=== PATIENT | male | born 1960 | race Caucasian/White ===

== ENCOUNTER → 2016-10-21 | Outpatient (CLI) | payer OTHER ==
--- NOTE | 2016-10-21 14:09 | RAD ---
EXAM DESCRIPTION: Right knee series. CLINICAL HISTORY: Right knee pain. COMPARISON: None. TECHNIQUE: Three views of the right knee are submitted for interpretation. FINDINGS: Joint space appears preserved. There is no fracture, dislocation, obvious joint effusion or suspicious radiopaque foreign body. Soft tissues are unremarkable. IMPRESSION: No significant abnormality. Electronically signed by: Judson Carlson MD 10/21/2016 14:07
--- NOTE | 2016-10-21 14:10 | RAD ---
EXAM DESCRIPTION: Pelvis series. CLINICAL HISTORY: Several months of pain COMPARISON: None. TECHNIQUE: One view was submitted for evaluation. FINDINGS: Symmetrical mild joint space loss noted within both hips. No fracture, dislocation, or radiopaque foreign body is seen. Pelvic ring appears intact. Soft tissues are unremarkable. IMPRESSION: Symmetrical joint space loss within bilateral hips compatible with mild degenerative change. Electronically signed by: Judson Carlson MD 10/21/2016 14:08
--- NOTE | 2016-10-22 19:09 | MRI ---
Study: MRI of the Right Knee. Indication: MEDIAL MENISCUS TEAR Technique: Multiplanar, multi sequence MRI of the right knee was obtained without intravenous contrast. Comparison: None. Findings: ACL, PCL, MCL, and lateral collateral ligament complex intact. Mild degenerative signal posterior horn medial meniscus without tear. In addition there is degenerative signal at the anterior root insertion of the medial meniscus with ill-defined tiny complex ganglion measuring up to 9 mm. Very subtle free edge fraying body lateral meniscus. Grade 1/2 chondral thinning central weight-bearing portions medial and lateral knee compartments without tear defect. Low-grade insertional quadriceps tendinosis with mild enthesophyte formation. More subtle tendinosis patellar tendon origin without tear. Patella intact. Areas of grade 1 and 2 chondral surface irregularity of the medial patellar facet noted with more pronounced grade 2/3 chondral loss of the midline femoral trochlea. Moderate size knee effusion. No acute fracture or osseous contusion. Impression: Degenerative signal change medial meniscus without tear. Subtle free edge fraying body lateral meniscus. 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 No full-thickness chondral defect. Moderate size knee effusion. Low-grade insertional quadriceps tendinosis with more subtle tendinosis patellar tendon origin. Electronically signed by: Lam Tirado MD 10/22/2016 19:07
== END ==
LOC: MRI 07:43
PROVIDERS: ATTEND Family Medicine
DX: M25.561 Pain in right knee (principal); M94.261 Chondromalacia, right knee; M25.461 Effusion, right knee; M76.891 Other specified enthesopathies of right lower limb, excluding foot; M25.551 Pain in right hip; M12.851 Other specific arthropathies, not elsewhere classified, right hip; M12.852 Other specific arthropathies, not elsewhere classified, left hip

== ENCOUNTER → 2016-11-15 | Outpatient (CLI) | payer OTHER | END | disposition home or self-care (01) | LOC: RESP 09:48 | PROVIDERS: ATTEND Orthopaedic Surgery | DX: Z01.818 Encounter for other preprocedural examination (principal) ==

== ENCOUNTER 2016-11-30 05:59 | Day surgery (SDC) | payer OTHER ==
--- NOTE | 2016-11-28 08:41 | HP ---
CHIEF COMPLAINT: Right knee pain. HISTORY OF PRESENT ILLNESS: Eric is a 55-year-old male with a history of pain in the right knee that has been going on for about four months. He can pinpoint the day that it happened. He says he was doing a [employer] race on that particular day. He had no direct trauma to the knee. He has popping in the knee and describes severe pain with certain activities inclusive of stairs. He has had no significant response to anti-inflammatories. It affects his gait and is also causing pain in the hips ipsilateral joints. 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 Given his mechanical symptoms and the interference with daily activity, he has requested operative intervention. After discussing the risks, benefits and alternatives to operative therapy, the patient has given informed consent. PAST SURGICAL HISTORY: 1. Herniorrhaphy. 2. Appendectomy. 3. Left wrist surgery. MEDICATIONS: 1. Dexilant. 2. Advil. ALLERGIES: PENICILLIN. CODE STATUS: Full code. IMMUNIZATIONS: Up to date. SOCIAL HISTORY: The patient does not smoke or use any illicit drugs. He does drink on occasion. FAMILY HISTORY: None pertinent to today's complaint. REVIEW OF SYSTEMS: Negative except as indicated in the History of Present Illness. PHYSICAL EXAMINATION: VITAL SIGNS: Blood pressure 140/110. Pulse 67. Height 6'4". Weight 224. MENTAL STATUS: The patient is awake, alert, and is able to give a good history and participate in the physical. The patient is oriented to person, place and time. SKIN: Normal tone and turgor. HEENT: Normocephalic, atraumatic. Pupils equal, round and reactive. Mucosal membranes are moist. NECK: Normal range of motion. No thyromegaly, no lymphadenopathy. CHEST: Normal respiratory excursion. CARDIAC: Regular rate and rhythm. No murmurs, rubs or gallops. MUSCULOSKELETAL: He has extreme tenderness along the medial aspect of the knee. He has intact sensation. There does not appear to be any effusion. He is mildly tender laterally. He has full extension with flexion to about 130 degrees. He has a positive Mane's, but negative Chucky's, negative posterior drawer, and no varus/valgus instability. IMAGING: X-rays show no acute bony abnormality. MRI was done and does show some patellofemoral arthritis with degenerative fraying of the medial meniscus. No other abnormality noted. There was a moderate effusion at the time of that MRI. ASSESSMENT: 1. Knee pain with mechanical symptoms. PLAN: The plan at this point is for knee arthroscopy. Eric and I talked about the fact that given his age and symptoms, that this will be both a diagnostic and hopefully therapeutic intervention for him, but we are also unsure of the exact etiology of the pain and, therefore, we are going to make some determinations while in the Operating Room. After discussing the risks, benefits and alter to operative therapy, he has given informed consent. [facility][id number] [facility]
[~2016-11-30 05:59] MED LIST: LACTATED RINGERS 1,000 ML ONE; SODIUM CHL 0.9% 100ML MINI-BAG 100 ML IVPB ONE; ceFAZolin SODIUM 1 GM VIAL ONE
[2016-11-30] MEDS ORDERED: BUPIVACAINE 0.25% W/EPI 50 ML VIAL INJ ONE (06:15)
[2016-11-30] MEDS ORDERED: ceFAZolin SODIUM 1 GM VIAL ONE (06:15)
[2016-11-30] MEDS ORDERED: VANCOMYCIN HCL INJ 1,000 MG VIAL IVPB ONE (06:15)
[2016-11-30] MEDS ORDERED: MIDAZOLAM INJ 5 MG/5 ML VIAL ONE (06:43)
[2016-11-30] MEDS ORDERED: HYDROmorphone HCL INJ 2 MG/ML VIAL ONE (06:43)
[2016-11-30 08:54] VITALS: O2SAT 99
[2016-11-30] MEDS ORDERED: HYDROcodone 5MG/APAP 325MG 1 EA TAB ONE (09:04)
[2016-11-30 09:40] VITALS: BP 147/93; TEMP 97.1
--- NOTE | 2016-11-30 11:25 | OP ---
DATE OF PROCEDURE: 11/30/16 PREOPERATIVE DIAGNOSIS: 1. Knee pain. POSTOPERATIVE DIAGNOSIS: 1. Chondromalacia of the medial compartment. 2. Chondromalacia with full thickness defect of the patellofemoral compartment. PROCEDURE: 1. Debridement or cartilage. SURGEON: Cory Rock MD. CONVENTIONAL MACHINIST: Samuel Rivera CST, -Nicole. ANESTHESIA: General. COMPLICATIONS: None. FINDINGS: 1. Normal medial meniscus. 2. Grade 3 to grade 4 chondromalacia of the medial femoral condyle with softening of the medial tibial plateau. 3. Normal anterior cruciate ligament. 4. Normal posterior cruciate ligament. 5. Softening of the lateral compartment cartilage. 6. Normal lateral gutter. 7. Normal suprapatellar pouch. 8. Full thickness defect measuring approximately 2 cm by 5 mm in the trochlear groove. 9. Normal posterior recess. INDICATION: Sergeant Singh has a history of knee pain and he can pinpoint pretty much the date that it began. He was having some pain after he was participating in a [employer] race. Subsequent to that, he continued to have pain and some mechanical symptoms. Given that, he requested operative intervention. After discussing the risks, benefits and alternatives to that, the patient has given informed consent. PROCEDURE: The patient was brought to the Operating Room and placed in supine position. General anesthesia was induced and the patient's leg was sterilely prepped and draped. Following prepping and draping, standard anteromedial and anterolateral portals were established. Diagnostic arthroscopy was carried out with the above findings. Following diagnostic arthroscopy, debridement of the medial femoral condyle was performed. Care was taken to ensure removal of all debris secondary to the chondroplasty. The knee was very thoroughly irrigated and once irrigation was complete, the knee was fully drained. The wounds were closed with Nylon suture. Sterile dressings were placed. The patient was awoken from anesthesia and taken to Recovery. POSTOPERATIVE INSTRUCTIONS: The patient will be partial weightbearing until followup with us. He has been given instructions on appropriate removal of dressing and wound care until followup. We will base any type of treatment in the future on his response. #[id number] [facility]
[2016-11-30] MEDS ORDERED: DEXAMETHASONE INJ 10 MG/ML VIAL IV ONE (12:00)
[2016-11-30] MEDS ORDERED: SODIUM CHLORIDE 0.9% 50 ML VIAL INJ ONE (12:00)
[2016-11-30] MEDS ORDERED: PROPOFOL 200 MG/20 ML VIAL IV ONE (12:00)
[2016-11-30] MEDS ORDERED: LIDOCAINE 1% 10 ML VIAL INJ ONE (12:00)
[2016-11-30] MEDS ORDERED: raNITIdine HCL INJ 25 MG/ML VIAL IV ONE (12:00)
[2016-11-30] MEDS ORDERED: ePHEDrine SULF 50 MG/ML IV ONE (12:00)
== END 2016-11-30 09:35 | disposition home or self-care (01) ==
LOC: AMB 05:59
PROVIDERS: ATTEND Orthopaedic Surgery
DX: M22.41 Chondromalacia patellae, right knee (principal); Z88.0 Allergy status to penicillin; Z79.899 Other long term (current) drug therapy
CPT/HCPCS: 01400; 29877; 36415; 85025; A4216; J0690; J1100; J1170; J2250; J2780; J3490; J7050; J7120

== ENCOUNTER → 2017-02-08 | Outpatient (CLI) | payer OTHER ==
--- NOTE | 2017-02-09 03:09 | RAD ---
Procedure: XR KNEE 4 OR MORE VIEWS Exam Date: 02/08/2017 Ordering Provider: GABRIEL POST Clinical Indication: PAIN Comparison: None FINDINGS: There is no fracture or dislocation. The articular surfaces of the left knee are intact. There is no significant joint space narrowing. Superior patellar enthesophyte. No lytic or sclerotic lesions. No joint effusion. No subcutaneous gas. IMPRESSION: 1. No acute fracture or dislocation of the left knee. Electronically signed by: Juan C Branch MD 02/09/2017 3:09 AM CDT
== END | disposition home or self-care (01) ==
LOC: RAD 11:06
PROVIDERS: ATTEND Orthopaedic Surgery
DX: M25.562 Pain in left knee (principal)

== ENCOUNTER → 2017-03-14 | Outpatient (CLI) | payer OTHER | END | disposition home or self-care (01) | LOC: GMAJ 10:44 | DX: E29.1 Testicular hypofunction (principal) ==

== ENCOUNTER → 2017-03-17 | Outpatient (CLI) | payer OTHER ==
--- NOTE | 2017-03-19 13:40 | US ---
EXAM DESCRIPTION: Abdomen,Complete CLINICAL HISTORY: ELEVATED LIVER FUNCTION TESTS. COMPARISON: None Available. TECHNIQUE: Complete abdominal ultrasound FINDINGS: The liver is enlarged up to 17.8 cm. It demonstrates diffusely increased echogenicity. There is no focal hepatic mass. The gallbladder contains no sludge, calculus, or polyps. The gallbladder wall measures 2 mm. The common bile duct measures 5 mm. The pancreas is not well seen due to bowel gas. Visualized portions are unremarkable. The spleen is normal in size, shape, and echotexture. The kidneys are normal in size, shape, and echotexture. The IVC and the proximal aorta are unremarkable. IMPRESSION: 1. Hepatomegaly with increased liver echogenicity, most consistent with steatosis. Electronically signed by: Sandro Encinas MD 03/19/2017 1:39 PM CDT Workstation: [id number]
== END | disposition home or self-care (01) ==
LOC: US 08:24
PROVIDERS: ATTEND Family Medicine
DX: R74.8 Abnormal levels of other serum enzymes (principal)

== ENCOUNTER 2017-04-07 08:00 | Day surgery (SDC) | payer OTHER ==
[~2017-04-07 08:00] MED LIST changes: -SODIUM CHL 0.9% 100ML MINI-BAG 100 ML IVPB ONE; -ceFAZolin SODIUM 1 GM VIAL ONE
[2017-04-07 08:43] VITALS: O2SAT 99
[2017-04-07 09:36] VITALS: BP 126/85; TEMP 97.4
--- NOTE | 2017-04-07 09:53 | OP ---
DATE OF PROCEDURE: 04/07/17 PREOPERATIVE DIAGNOSIS: 1. Colon cancer screen. POSTOPERATIVE DIAGNOSIS: 1. Polyp in the cecum. PROCEDURE: 1. Colonoscopy with biopsy of cecal polyp. SURGEON: Billy Lopes MD. ANESTHESIA: MAC by Williams Kolb CRNA. ESTIMATED BLOOD LOSS: Less than 2 mL. COMPLICATIONS: None apparent. TECHNIQUE: After informed consent was obtained from the patient, the patient was taken to the Endoscopy Suite and put in the left lateral decubitus position. After adequate IV sedation was obtained, a digital rectal exam was performed which revealed normal sphincter tone, no intraluminal masses, and a smooth, 1+, anodular prostate. The colonoscope was then passed with good visualization all the way through the colon. The bowel prep was good. In the cecum immediately adjacent to the what appeared to be the appendiceal scar, the patient had a large, wide-based polyp. This looks to be an adenomatous polyp, but was too large to do a polypectomy on, especially all the way up in the cecum and with such a wide stalk. The lesion was biopsied and good tissue was obtained and sent to Pathology. There was good hemostasis from the biopsy site. The lesion was carefully inspected and it was decided it was too risky to attempt a polypectomy here in [place] without the presence of our general surgeon. The scope was then withdrawn slowly over the next 10 to 12 minutes and a good look at the remainder of the colon was obtained. There were no other abnormalities found. The scope was removed. The patient tolerated the procedure well. The patient was transported to the outpatient area in good condition. He will followup with me in one week for path report. He will need to have this polyp removed. Hopefully, it will be benign and we can send him to [place] for endoscopic removal at [facility]. #[id number] [facility]
[2017-04-07] MEDS ORDERED: PROPOFOL 200 MG/20 ML VIAL IV ONE (12:00)
== END 2017-04-07 09:20 | disposition home or self-care (01) ==
LOC: AMB 08:00
PROVIDERS: ATTEND Family Medicine
DX: Z12.11 Encounter for screening for malignant neoplasm of colon (principal); D12.0 Benign neoplasm of cecum; I10 Essential (primary) hypertension; F51.04 Psychophysiologic insomnia; E78.5 Hyperlipidemia, unspecified; M17.10 Unilateral primary osteoarthritis, unspecified knee; M54.5 Low back pain; R07.9 Chest pain, unspecified; K21.9 Gastro-esophageal reflux disease without esophagitis; I25.10 Atherosclerotic heart disease of native coronary artery without angina pectoris; Z86.010 Personal history of colon polyps; Z88.8 Allergy status to other drugs, medicaments and biological substances; Z88.0 Allergy status to penicillin; Z79.899 Other long term (current) drug therapy
CPT/HCPCS: 00810; 45380; J3490; J7120

== ENCOUNTER → 2018-02-12 | Outpatient (CLI) | payer OTHER ==
--- NOTE | 2018-02-12 12:01 | US ---
EXAM DESCRIPTION: Renal Arteries CLINICAL HISTORY: 57 years Male, MALIG HYPERTENSION COMPARISON: None. TECHNIQUE: 2-D grayscale and color arterial duplex Doppler evaluation of the abdominal aorta and renal arterial vasculature is performed. FINDINGS: No obvious hydronephrosis. Peak systolic velocity of the abdominal aorta is 90 cm/s. Systolic velocity of the right main renal artery is 132 cm/s. The left is 98.5 cm/s. The renal artery to aortic ratio is 1.5 on the right and 1.1 on the left. IMPRESSION: No ultrasound evidence of renal artery stenosis. Electronically signed by: Fredrick Garner MD 02/12/2018 12:00 PM CDT
== END ==
LOC: US 08:33
PROVIDERS: ATTEND Family Medicine
DX: I10 Essential (primary) hypertension (principal)

== ENCOUNTER 2018-02-14 05:37 | Day surgery (SDC) | payer OTHER ==
[2018-02-14] MEDS ORDERED: LACTATED RINGERS 1,000 ML ONE (06:11)
[2018-02-14] MEDS ORDERED: PROPOFOL 200 MG/20 ML VIAL IV ONE (10:00)
--- NOTE | 2018-02-14 10:46 | OP ---
DATE OF PROCEDURE: 02/14/18 PREOPERATIVE DIAGNOSIS: 1. Dysphagia. 2. Gastroesophageal reflux disease. POSTOPERATIVE DIAGNOSIS: 1. Dyslipidemia. 2. Gastroesophageal reflux disease. PROCEDURE: 1. Esophagogastroduodenoscopy with dilation of the esophagus with Savary dilators plus biopsy. SURGEON: Lm Alas MD. COMPLICATIONS: None apparent. BLOOD LOSS: None. MEDICATIONS: Monitored anesthesia care. DESCRIPTION OF PROCEDURE: Informed consent was obtained prior to sedation. The preprocedure cardiopulmonary assessment was satisfactory. The patient was placed in the left lateral decubitus position and was sedated. The tip of the Olympus esophagogastroduodenoscope was inserted in the oropharynx and carefully advanced through the cricopharyngeus into the esophageal lumen. Endoscopically , the esophagus was pretty much normal. There was no evidence of any strictures. There was no significant esophagitis, no Sweeney's esophagus. The stomach was examined with direct and retroflexed views. The antrum, body, fundus, cardia and incisura were closely examined and unremarkable. The duodenum was examined down to the third portion and it was unremarkable. The decision was made to empirically dilate the esophagus. 18 and 19 mm Savary dilators were used over a guidewire. Following the passage of the dilators, a re-look with the upper endoscope did not reveal any bleeding or tissue disruption. Thus, there is not a mechanical source of obstruction seen. I then biopsied the distal and the proximal esophagus looking for eosinophilic esophagitis. The procedure was then terminated. RECOMMENDATIONS: Call my office in one week for biopsy results. If there is no eosinophilic esophagitis, and if the dysphagia persists, then we may need radiologic studies to look for a motility issue. If the patient still has dysphagia despite the dilation, we will need to evaluate him further for motility problem. #[id number] #[id number] cc: Billy Lopes MD MTDD
[2018-02-14] MEDS ORDERED: HYDROmorphone HCL INJ 2 MG/ML VIAL ONE (11:19)
[2018-02-14] MEDS ORDERED: SODIUM CHLORIDE 0.9% 1000ML 1,000 ML ONE (11:19)
[2018-02-14] MEDS ORDERED: ONDANSETRON INJ 4 MG/2 ML VIAL ONE (11:20)
--- NOTE | 2018-02-14 11:20 | RAD ---
EXAM DESCRIPTION: Abdomen Series CLINICAL HISTORY: 57 years Male, Post Op pain COMPARISON: None. FINDINGS: Four views of the chest and abdomen demonstrate moderate free abdominal air beneath the right and left hemidiaphragm consistent with perforation of a hollow viscus. Results were discussed with Dr. Lm Alas at the time of interpretation. Slightly crowded markings at the right lung base are noted with otherwise clear lung castañeda. Cardiac silhouette is borderline prominent but likely related to the degree of inspiration. No evidence of bowel obstruction is seen. IMPRESSION: Free abdominal air beneath both hemidiaphragms consistent with rupture of a hollow viscus. Electronically signed by: Jose Aranda MD 02/14/2018 11:19 AM CDT
[2018-02-14] MEDS ORDERED: SODIUM CHL 0.9% 50ML MIN-BAG+ 50 ML IVPB ONE (11:33)
[2018-02-14] MEDS ORDERED: MEROPENEM 500 MG VIAL IVPB ONE (11:40)
[2018-02-14 13:14] VITALS: BP 151/82; TEMP 99.7; O2SAT 95
--- NOTE | 2018-02-14 14:18 | PN ---
DATE: 02/14/18 Following the patient's EGD and dilation and biopsy, he began having upper abdominal pain that was radiating around to his right back. Initially, he walked to see if this was just gas pain. The pain persisted. We obtained an acute abdominal series and it showed significant pneumoperitoneum. Thus, this is consistent with a perforation of the upper GI tract. I suspect that it is in the stomach or duodenum since he did not appear to have any esophageal mucosal disruption when I examined the esophagus following the passage of the dilators. I discussed the findings with the patient and his . He should be transferred to a facility with cardiothoracic surgery capabilities in case this is an esophageal perforation. I talked with the family and they wanted to go to the [place] area since Ms. Singh is from there and has family there. Dr. Gimenez had a good contact with a previous colleague of his, Dr. Taran Faye. Dr. Gimenez got me in contact with Dr. Faye and Dr. Faye graciously accepted the patient to [facility]. The patient was hemodynamically stable and had no respiratory difficulty. He was given Zofran 4 mg IV for nausea and Dilaudid 1 mg IV for pain and 500 mg IV of meropenem. We subsequently transferred him down to the [facility]. #[id number] [facility]
== END 2018-02-14 12:55 | disposition short-term general hospital (02) ==
LOC: AMB 05:37
PROVIDERS: ATTEND Internal Medicine Gastroenterology
DX: K21.9 Gastro-esophageal reflux disease without esophagitis (principal); I10 Essential (primary) hypertension; E78.5 Hyperlipidemia, unspecified; E66.9 Obesity, unspecified; Z68.30 Body mass index [BMI] 30.0-30.9, adult; Z88.5 Allergy status to narcotic agent; Z88.0 Allergy status to penicillin; Z79.899 Other long term (current) drug therapy
CPT/HCPCS: 00731; 43239; 43248; 74019; J1170; J2185; J2405; J3490; J7030; J7050; J7120

== ENCOUNTER → 2018-12-08 | Outpatient (CLI) | payer OTHER ==
--- NOTE | 2018-12-08 09:41 | RAD ---
EXAM DESCRIPTION: Chest,2 Views CLINICAL HISTORY: 58 years Male FEVER COMPARISON: None TECHNIQUE: PA and lateral views of the chest are obtained. FINDINGS: Heart: The heart is normal in size and configuration. Vasculature: The aorta is mildly tortuous without evidence of aneurysm. The pulmonary vascularity is normal. Mediastinum: Unremarkable otherwise. No evidence of mass or adenopathy. Lungs: There is no focal consolidation in the lungs. Pleural spaces: There are no pleural effusions. There are no pneumothoraces. Osseous structures: There is no evidence of acute fracture, osseous destruction or osteoblastic lesions. There are degenerative changes in the spine. Tubes and catheters: None. Upper abdomen: No acute findings. Chest wall: Unremarkable. IMPRESSION: No acute cardiopulmonary abnormality. Remainder of findings as described above. Electronically signed by: Zoila Lofton MD 12/08/2018 9:38 AM [facility]
== END ==
LOC: LAB.O 08:47
PROVIDERS: ATTEND Nurse Practitioner Family
DX: R50.9 Fever, unspecified (principal)

== ENCOUNTER → 2018-12-10 | Outpatient (CLI) | payer OTHER | LOC: LAB.O 09:30 | PROVIDERS: ATTEND Family Medicine | DX: I10 Essential (primary) hypertension (principal); R06.02 Shortness of breath ==